=== PATIENT | male | born 1975 | race Caucasian/White ===

== ENCOUNTER 2017-03-15 21:55 | Observation (INO) | payer OTHER ==
--- NOTE | ~2017-03-15 | HEMODYNAMI ---
PATIENT:ALEXANDRIA BARTHOLOMEW MEDICAL RECORD: [id number] : 71 LOCATION:[place] [address] ADMISSION DATE: 03/15/17 Generatedon:03/16/201711:54 Patient name: ALEXANDRIA BARTHOLOMEW Patient #: [id number] SSN: : 1975 Date of study: 03/16/2017 Page: Of Hemodynamic Procedure Report Patient Data Patient Demographics Procedure consent was obtained First Name: ALEXANDRIA Gender: Male Last Name: PUMA : 1975 Patient #: [id number] Age: 41 year(s) Race: Unknown Additional ID: [id number] Contact details Address: [facility] State: [place] City: [place] Zip code: [address] Past Medical History Allergies: No known allergies Admission Admission Data Admission Date: 03/15/2017 Admission Time: 23:52 Room #: [facility] Procedure Procedure Types Cath Procedure Diagnostic Procedure C [facility] w/Coronaries Miscellaneous Procedures Moderate Sedation up to 15 minutes Procedure Description Procedure Date Procedure Date: 03/16/2017 Procedure Start Time: 11:42 Procedure End Time: 11:53 Procedure Staff Name Function Minor Jordan MD Performing Physician Awilda Aj RT Scrub Nabor Chandler RN Nurse Robert Perkins RT Monitor Procedure Data Cath Procedure Fluoroscopy Diagnostic fluoroscopy Total fluoroscopy Time: 1.7 time: 1.7 min min Diagnostic fluoroscopy Total fluoroscopy dose: 395 dose: 395 mGy mGy Contrast Material Contrast Material Type Amount (ml) Isovue 300 44 Entry Location Entry Primary Successful Side Size Upsize Upsize Entry Closure Jimenez ccessful Closure Location (Fr) 1 (Fr) 2 (Fr) Remarks Device Remarks Radial Right 6 Fr Mechanical artery Short Compression Estimated blood loss: 5 ml Diagnostic catheters Device Type Used For End Catheter Placement Diagnostic Terumo 5Fr Procedure Bailey 110cm catheter Procedure Complications No complications Procedure Medications Medication Administration Route Dosage 0.9% NaCl I.V. 100 ml/hr Oxygen NC 2 l/min Heparin Flush Bag added to field 2 bags (1000units/500ml NS) Lidocaine 2% added to field 20 Versed I.V. 1 mg Fentanyl I.V. 50 mcg Fentanyl I.V. 50 mcg Versed I.V. 1 mg Hemodynamics Rest Heart Rate: 63 (bpm) Snapshots Pre Cath Intra NCS Post Cath Vital Signs Time Heart Resp SPO2 etCO2 NIBP (mmHg) Rhythm Pain Sedation Rate (ipm) (%) (mmHg) Status Level (bpm) 11:34:12 67 22 100 0 161/93(135) NSR 0 (11) 10(A) , No pain 11:39:05 71 27 97 0 147/95(118) NSR 0 (11) 10(A) , No pain 11:43:56 83 25 94 0 147/85(113) NSR 0 (11) 10(A) , No pain 11:48:44 79 27 95 0 159/98(127) NSR 0 (11) 9(A) , No pain 11:53:37 86 26 94 0 150/96(123) NSR 0 (11) 9(A) , No pain Medications Time Medication Route Dose Verified Delivered Reason Notes Effe ctiveness by by 11:34:03 0.9% NaCl I.V. 100 Nabor Nabor Per ml/hr Lororal Lororal physician RN RN 11:34:17 Oxygen NC 2 Nabor Nabor Per l/min Lororal Lorigan physician RN RN 11:34:40 Heparin Flush added 2 Nabor Nabor used for Bag to bags Lorigan Lorigan procedure (1000units/500ml field RN RN NS) 11:34:54 Lidocaine 2% added 20ml Nabor Nabor for local to vial Lorigan Lorigan anesthetic field RN RN 11:41:12 Fentanyl I.V. 50 Nabor Nabor for mcg Lorigan Lorigan sedation RN RN 11:42:55 Versed I.V. 1 mg Nabor Nabor for Lorigan Lorigan sedation RN RN 11:47:38 Fentanyl I.V. 50 Nabor Nabor for mcg Lorigan Lorigan sedation RN RN 11:47:46 Versed I.V. 1 mg Nabor Nabor for Lorigan Lorigan sedation RN geriatric psychiatrist Log Time Note 10:57:59 Awilda Counts RT(R) sent for patient. Start room use. 10:57:59 Time tracking: Regular hours 10:58:03 Plan of Care:Hemodynamics will remain stable., Cardiac rhythm will remain stable., Comfort level will be maintained., Respiratory function will remain adequate., Patient/ family verbilizes understanding of procedure., Procedure tolerated without complication., Recovers from procedure without complications.. 11:14:14 Patient received from Med II to CCL 1 Alert and oriented. Tansferred to table in Supine position. 11:14:16 Warm blankets applied, and simran hugger turned on for patient comfort. 11:14:16 Correct patient and procedure confirmed by team. 11:14:18 Signed procedure consent form obtained from patient. 11:14:19 ECG and BP/O2 sat monitors applied to patient. 11:33:06 Vital chart was started 11:34:03 0.9% NaCl 100 ml/hr I.V. was administered by Nabor Chandler RN; Per physician; 11:34:17 Oxygen 2 l/min NC was administered by Nabor Chandler RN; Per physician; 11:34:40 Heparin Flush Bag (1000units/500ml NS) 2 bags added to field was administered by Nabor Chandler RN; used for procedure; 11:34:54 Lidocaine 2% 20ml vial added to field was administered by Nabor Chandler RN; for local anesthetic; 11:37:34 H&P Date Dictated: 03/16/2017 Within 30 days and on chart.. 11:37:36 Baseline sample Acquired. 11:37:39 Rhythm: sinus rhythm 11:37:41 Full Disclosure recording started 11:37:43 Pre-procedure instructions explained to patient. 11:37:43 Pre-op teaching completed and patient verbalized understanding. 11:37:52 Family in patients room. 11:37:53 Patient NPO since Midnight. 11:38:07 Patient allergic to No known allergies 11:38:09 Is the patient allergic to Iodine/contrast media? No. 11:38:10 Is patient on blood thinner?Yes 11:38:13 ACC The patient was administered the following blood thiners within the last 24 hours: ACCPlavix 11:38:15 Patient diabetic? Yes. 11:38:16 If diabetic: On Metformin? Yes 11:38:18 If on Metformin: Last Dose? 03/15/2017 11:38:20 Previous problem with sedation/anesthesia? No ? 11:38:21 Snore? Yes 11:38:22 Sleep apnea? Yes 11:38:23 Deviated septum? No 11:38:24 Opens mouth fully? Yes 11:38:25 Sticks out tongue? Yes 11:38:27 Airway obstruction? No ? 11:38:29 Dentures? No ? 11:38:31 Modified Brody's test Ulnar < 7 seconds 11:38:33 Patient pain scale 0/10 ?. 11:38:38 IV patent on arrival in right forearm with 0.9% NaCl at KVO. 11:38:43 IV right forearm D/C'd due to infiltration. 11:38:51 IV started by Nabor Chandler RN inleft forearm with a 20 gauge IV catheter with 0.9% NaCl at KVO. 11:38:58 Lab results completed and on chart. 11:39:00 Right Radial & Right Groin area was prepped with chlora-prep and draped in sterile fashion 11:39:01 Alarms reviewed by R. N. 11:39:01 Sharps counted by scrub and verified by R.N. 11:39:04 Use device set Radial Dx 11:39:05 MBrace Wrist Support opened to sterile field. 11:39:06 Acist Manifold opened to sterile field. 11:39:06 Acist Hand Control opened to sterile field. 11:39:07 Acist Syringe opened to sterile field. 11:39:07 Medline Cath Pack opened to sterile field. 11:39:08 Bag Decanter opened to sterile field. 11:39:08 Terumo 6Fr Slender Glidesheath opened to sterile field. 11:39:09 St Haseeb 260cm J .035 wire opened to sterile field. 11:39:09 Tegaderm 4 x 4 opened to sterile field. 11:39:13 Physician arrived 11:39:14 --------ALL STOP TIME OUT------ 11:39:14 Final Timeout: patient, procedure, and site verified with staff and physician. All members of the team are in agreement. 11:39:15 Right Radial & Right Groin site verified by team. 11:39:18 Physical assessment completed. ASA score P 2 - A patient with mild systemic disease as per Minor Jordan MD. 11:39:21 Sedation plan: IV Moderate Sedation Versed, Fentanyl 11:41:12 Fentanyl 50 mcg I.V. was administered by Nabor Chandler RN; for sedation; 11:42:15 Procedure started. 11:42:20 Local anesthetic to right radial artery with Lidocaine 2% by Minor Jordan MD.INITIAL ACCESS ONLY 11:42:28 A 6 Fr Short sheath was inserted into the Right Radial artery 11:42:32 Zero performed for pressure channel P1 11:42:55 Versed 1 mg I.V. was administered by Nabor Chandler RN; for sedation; 11:45:48 A Diagnostic [employer]o 5Fr Bailey 110cm catheter was advanced over the wire and used for Procedure. 11:45:57 LV gram done using SAVAGE 11:46:00 Injector settings: Ml/sec: 5, Volume: 15, 11:46:04 EF : 60 % 11:46:06 RCA angiography performed. 11:46:08 Catheter removed. 11:46:34 WeHaus Launcher 6Fr EBU 3.5 guide catheter opened to sterile field. 11:46:43 6 Fr ebu 3.5 guide catheter was inserted over the wire 11:46:46 LCA angiography performed. 11:47:18 Catheter removed. 11:47:24 Terumo TR Band Large opened to sterile field. 11:47:36 Sheath removed intact; hemostasis achieved with Mechanical Compression to the Right Radial artery. 11:47:38 Fentanyl 50 mcg I.V. was administered by Nabor Chandler RN; for sedation; 11:47:46 Versed 1 mg I.V. was administered by Nabor Chandler RN; for sedation; 11:48:17 Procedure ended.(Physican Out) 11:49:30 20g IV Catheter opened to sterile field. 11:51:32 Fluoroscopy time 01.70 minutes. 11:51:36 Fluoroscopy dose: 395 mGy 11:51:36 Flurop Dose total: 395 11:52:03 Contrast amount:Isovue 300 44ml. 11:52:04 Sharps counted by scrub and verified by R.N. 11:52:06 TR band inflated with 10cc of air. 11:52:07 Insertion/operative site no bleeding no hematoma. 11:52:12 Post right radial artery:stable, soft, clean and dry 11:52:15 Post Procedure Pulses reassessed and unchanged 11:52:18 Post procedure rhythm: unchanged. 11:52:21 Post-procedure physical assessment completed. ASA score P 2 - A patient with mild systemic disease as per Minor Jordan MD. 11:52:23 Post procedure rhythm: sinus rhythm 11:52:25 Estimated blood loss: 5 ml 11:52:26 Post procedure instruction explained to patient.Patient verbalizes understanding. 11:52:27 Patient needs reinforcement of post procedure teaching. 11:52:33 Procedure type changed to Cath procedure, Diagnostic procedure, LHC, LHC w/Coronaries, Miscellaneous Procedures, Moderate Sedation up to 15 minutes 11:53:25 Procedure and supply charges have been captured, reviewed, submitted and are correct. 11:53:28 Procedure Complication : No complications 11:53:33 Vital chart was stopped 11:53:33 See physician's report for complete and final results. 11:53:36 Report given to PCU. 11:53:38 Patient transfered to PCU with Stretcher. 11:53:40 Procedure ended. 11:53:40 Full Disclosure recording stopped 11:53:47 End room use (Document Last) Device Usage Item Name Manufacture Quantity Catalog Hospital Part Current Minimal Lot# / Number Charge Number Stock Stock Serial# Code [facility] 1 [id number] [id number] 5 Wrist Vascular Support Dynamics Acist Acist 1 86526 [id number] 742580 736079 5 Manifold Medical Systems Inc Acist Hand Acist 1 98910 924639 147629 016984 5 Control Medical Systems Inc Acist Acist 1 23895 772954 261215 363374 20 Syringe Medical Systems Inc Medline Cardinal 1 [id number] [id number] 20720 583396 5 Cath Pack Health Bag Microtek 1 2001S 663627 93409 615628 5 DecOptuLink Inc. Terumo 6Fr Terumo 1 [id number] 718411 388340 559013 [address] St Haseeb 1 810196 821821 952870 096699 30 260cm J .035 wire Tegaderm 4 3M 1 1626W 999900 542197 761894 5 x 4 Diagnostic Terumo 1 94-4463 001511 350581 149767 5 Terumo 5Fr Bailey 110cm catheter Medtronic Medtronic 1 [id number] 274974 60654 058464 3 Launcher 6Fr EBU 3.5 guide catheter Terumo TR Terumo 1 [id number] 107894 121524 754767 40 Band Large 20g IV B. Wilson 1 [id number] 827932 780933 651288 5 Catheter Signature Audit [place] Stage Time Signature Unsigned Intra-Procedure 03/16/2017 Robert Perkins 11:54:19 AM RT(R) Signatures Monitor : Robert Perkins RT Signature : Date : Time : [place] [id number] [facility] [place] [address]
[2017-03-15 22:37] LABS: BASOPHILS 0.5 % (0-2); EOSINOPHILS 1.5 % (0-7); HEMATOCRIT 45.1 % (42.0-54.0); HEMOGLOBIN 16.5 g/dL (13.5-17.5); IMMATURE GRANULOCYTES 0.4 % (0-5); LYMPHOCYTES 23.7 % (15-50); MCH 35.4 pg (26.0-34.0); MCHC 36.6 g/dL (31.0-37.0); MCV 96.8 fL (80.0-100.0); MEAN PLATELET VOLUME 10.8 fL (7.4-10.4); MONOCYTES 3.3 % (2-11); NEUTROPHILS 70.6 % (40-80); PLATELET COUNT 174 10x3/uL (130-400); RBC 4.66 10x6/uL (4.20-6.10); RDW 12.5 % (11.5-14.5)
[2017-03-15 22:52] LABS: ALBUMIN 3.5 g/dL (3.4-5.0); ALKALINE PHOSPHATASE 102 U/L (46-116); ALT (SGPT) 83 U/L (10-68); BILIRUBIN - TOTAL 0.37 mg/dL (0.2-1.3); CALC OSMOLALITY 269 mosm/kg (275-300); CALCIUM 8.9 mg/dL (8.5-10.1); CARBON DIOXIDE 23.7 mmol/L (21.0-32.0); CHLORIDE - SERUM 100 mmol/L (98-107); CREATININE - SERUM 1.1 mg/dL (0.6-1.3); GLUCOSE 168 mg/dL (74-106); POTASSIUM - SERUM 3.4 mmol/L (3.5-5.1); PROTEIN - SERUM 7.7 g/dL (6.4-8.2); SODIUM 134 mmol/L (136-145); UREA NITROGEN 7 mg/dL (7-18); eGFR NON AFRICAN AMERICAN 78 mL/min (90-120)
[2017-03-15 23:01] LABS: CHOL - HDL RATIO 4.4 ratio (2.3-4.9); CHOLESTEROL, TOTAL 166 mg/dL (0-200); CKMB 0.7 U/L (0.0-3.6); CREATINE KINASE 197 UL (21-232); HDL CHOLESTEROL 38 mg/dL (32-96); TRIGLYCERIDE 433 mg/dL (30-200)
[2017-03-15 23:03] LABS: TROPONIN-I < 0.017 ng/mL (0.000-0.060)
[2017-03-16 00:48] LABS: UDS - AMPHET NEGATIVE QUAL (NEGATIVE); UDS - BARB NEGATIVE QUAL (NEGATIVE); UDS - BENZO NEGATIVE QUAL (NEGATIVE); UDS - COCAINE NEGATIVE QUAL (NEGATIVE); UDS - OPIATE NEGATIVE QUAL (NEGATIVE); UDS - PCP NEGATIVE QUAL (NEGATIVE); UDS - THC POSITIVE QUAL (NEGATIVE)
[2017-03-16] MEDS ORDERED: GLUCOPHAGE500 MG PO (01:30)
--- NOTE | 2017-03-16 01:33 | NUR ---
PT ARRIVED TO ROOM. PT AMBULATED TO BED FROM WHEELCHAIR WITH A STEADY GAIT. PT HAS FAMILY MEMBER AT BEDSIDE. PT IS AAO. O2 2L NC. IV S/L ON RIGHT FOREARM.PT BED IS LOW. CALL LIGHT IN REACH. WILL CPOC
[2017-03-16] MEDS ORDERED: NICORELIEF4 MG PO (01:50)
[2017-03-16] MEDS ORDERED: GLIPIZIDE10 MG PO (01:51)
[2017-03-16] MEDS ORDERED: VITAMIN D31000 UNIT PO (01:51)
[2017-03-16] MEDS ORDERED: ZOLOFT100 MG PO (01:52)
[2017-03-16] MEDS ORDERED: XALATAN 0.0052.5 ML EACH EYE (01:53)
[2017-03-16] MEDS ORDERED: OMEGA 3 FISH OI1 CAP PO (01:54)
[2017-03-16] MEDS ORDERED: MELATONIN 3 MG1 TAB PO (01:55)
[2017-03-16 02:43] VITALS: BP 166/94; BMI 31.4
[2017-03-16 04:00] VITALS: BP 166/94
--- NOTE | 2017-03-16 06:38 | NUR ---
PT ASLEEP. RESPIRATIONS EVEN AND UNLABORED. LAYING IN BED NEXT TO HIM. PT RESPONDS TO VERBAL STIMULI. PT DENIES ANY NEEDS AT THIS TIME. NO S/S OF DISTRESS WILL CPOC
[2017-03-16 07:16] VITALS: BP 142/93
[2017-03-16 09:10] VITALS: BMI 31.3
--- NOTE | 2017-03-16 11:13 | NUR ---
PRE-OPS GIVEN. TO SMUTTER BY BED.
--- NOTE | 2017-03-16 12:12 | NUR ---
BACK FROM POOL CLEANER. VS WNL. RIGHT WRIST STABLE WITH TR BAND INTACT. WILL MONITOR.
--- NOTE | 2017-03-16 14:46 | NUR ---
TR BAND DCD WITHOUT BLEEDING OR HEMATOMA NOTED.
--- NOTE | 2017-03-16 15:01 | NUR ---
IV AND TELEMETRYDCD. DC PLANS GIVEN. UNDERSTANDING VOICED. ESCORTED TO CAR BY W/C.
--- NOTE | 2017-03-19 16:42 | DS ---
PATIENT:ALEXANDRIA KENNEDY :71 MEDICAL RECORD: [id number] DISCHARGE SUMMARY ADMISSION DATE: 03/15/17 DISCHARGE DATE: 03/16/17 DIAGNOSES: 1. Chest pain. 2. Normal cardiac catheterization. Mr. Kennedy presents with chest pain. Multiple risk factors for coronary disease; however, cardiac catheterization is normal. Discharged home with no change in his medications. No cardiac followup is necessary. TRANSINT:[id number] Voice Confirmation ID: [id number] DOCUMENT ID: [id number] MANAS JO MD at 1642 CC: [id number] DICTATION DATE: 03/16/17 1149 CLEARING INSPECTOR: 03/16/17 1326 DIS IN 03/16/17 [place] [id number] [place] [address]
--- NOTE | 2017-03-19 16:42 | HP ---
PATIENT: ALEXANDRIA BARTHOLOMEW MEDICAL RECORD: [id number] ACCOUNT: [id number] LOCATION:[address] : 71 ADMISSION DATE: 03/15/17 HISTORY AND PHYSICAL EXAMINATION DIAGNOSES: 1. Angina. 2. Family history of coronary artery disease. 3. Noninsulin-dependent diabetes. 4. Smoking history. 5. Hyperlipidemia. HISTORY OF PRESENT ILLNESS: This is a gentleman with no previous cardiac history, who has a history of multiple risk factors as outlined above, who began having chest pain, chest discomfort, very classic anginal pain radiating down the left arm associated with shortness of breath and diaphoresis. He had quite severe episode yesterday, presented to the Emergency Room. His troponin is normal. He had another episode of chest discomfort this morning. PHYSICAL EXAMINATION: GENERAL APPEARANCE: Well-nourished, well-developed, appears stated age. Level of distress, comfortable. PSYCHIATRIC: Mental status, alert, normal affect. Orientation, oriented to time, place and person. EYES: Lids and conjunctiva, noninjected. No discharge, no pallor. ENT: Lips, teeth, gums, normal dentition. Oropharynx, no cyanosis, no pallor. NECK: Carotid arteries, bilateral normal upstroke, no bruits, no thrills. JUGULAR VEINS: No jugular venous pressure or distention. CERVICAL LYMPH NODES: Nontender, nonenlarged. THYROID: Not enlarged. Nontender. No nodules. LUNGS: Respiratory effort, unlabored. CHEST: Normal curvature. No thoracic deformity. No chest wall tenderness. Percussion, resonant. Auscultation, clear. No wheezes, no rales, no rhonchi. CARDIOVASCULAR: Precordial exam, nondisplaced. No heaves or pericardial thrills. Rate and rhythm, regular. Heart sounds, normal S1, normal S2. No S3, no gallop, no rub. Systolic murmur, not heard. Diastolic murmur, not heard. EXTREMITIES: No cyanosis, no edema. Peripheral pulses, full and equal in all extremities, except as noted. No bruits appreciated. ABDOMEN: Soft, nondistended. Normal aorta. No bruit. Nontender. No masses. Liver, nontender, no hepatomegaly. Spleen, nontender, no splenomegaly. MUSCULOSKELETAL: No joint tenderness. No joint swelling. No erythema. NEUROLOGICAL: Normal gait, normal strength, normal tone. SKIN: Warm and dry. REVIEW OF SYSTEMS: The patient reports easy bruising but reports no swollen glands. The patient reports no fever, no night sweats, no significant weight gain, no significant weight loss. No significant exercise tolerance. The patient reports no dry eyes, no irritation, no vision change. Patient reports no difficulty hearing and no ear pain. Patient reports no frequent nose bleeds or nose and sinus problems. Patient reports on arm pain on exertion. No shortness of breath while lying down. No history of heart murmur. Patient reports no cough, no wheezing or coughing up blood. Patient reports no abdominal pain, no vomiting. Normal appetite. No diarrhea and not vomiting blood. No nausea and no constipation. Patient reports no incontinence. No difficulty urinating. No hematuria. No increased frequency. Patient reports HISTORY AND PHYSICAL [id number] ALEXANDRIA BARTHOLOMEW no muscle aches. No weakness, no arthralgias, no back pain. No swelling of the extremities. Patient reports no abnormal mole, no jaundice, no rashes. Reports no loss of consciousness. No weakness and no numbness. No seizures, dizziness, or headaches. The patient reports no depression, no sleep disturbance, feeling safe in a relationship and no alcohol abuse. Patient reports on fatigue. Reports no runny nose or sinus pressure. No itching, no hives, and no frequent sneezing. OVERALL IMPRESSION: Unstable anginal symptomatology in a patient with multiple risk factors, we will proceed with coronary angiography. Further care depends upon findings of the angiography. TRANSINT:[id number] Voice Confirmation ID: [id number] DOCUMENT ID: [id number] MANAS JO MD at 1642 CC: [id number] DICTATION DATE: 03/16/1737 TECHNICAL BUSINESS ANALYST: 03/16/17 0950 DIS IN 03/16/17 [facility] [address] [place] [address]
--- NOTE | 2017-03-19 16:42 | OP ---
PATIENT NAME: ALEXANDRIA BARTHOLOMEW MEDICAL RECORD: [id number] :71 LOCATION:[address] ADMISSION DATE:03/15/17 SURGEON: MANAS JO MD DATE OF OPERATION: 03/16/2017 PROCEDURES: 1. Left heart catheterization. 2. Selective coronary angiography. 3. Left ventriculogram. INDICATION: Chest pain. PROCEDURE IN DETAIL: After informed consent was obtained and after detailed explanation of risks and benefits as well as alternative therapies, the patient elected to proceed with angiogram and heart catheterization. The right radial area was prepped and draped in normal sterile fashion. The right radial artery was cannulated via modified Seldinger technique with placement of 5-Singaporean sheath. All catheters were exchanged through this sheath. FINDINGS: The left ventriculogram was performed in standard 30-degree SAVAGE view, reveals good cardiac wall motion throughout all segments. The overall ejection fraction is estimated at 60%. SELECTIVE CORONARY ANGIOGRAPHY: Left main, left anterior descending, left circumflex, and right coronary are all smooth-walled vessels with no angiographic evidence of coronary artery disease. OVERALL IMPRESSION: 1. No angiographic evidence of coronary artery disease. 2. Normal left heart pressures. 3. Normal left ventricular systolic function. Chest pain is noncardiac in etiology. No other cardiac workup needs to be ascertained. TRANSINT:[id number] Voice Confirmation ID: [id number] DOCUMENT ID: [id number] MANAS JO MD at 1642 CC: [id number] DICTATION DATE: 03/16/17 1151 FINANCIAL SERVICES COUNSELOR: 03/16/17 1325 DIS IN 03/16/17 [place] [id number] [place] [address]
== END 2017-03-16 15:02 | disposition home or self-care (01) ==
LOC: OBSVTIME → D.ER 21:55 → D.M2 23:52 → OBSVTIME 23:52 → D.M2 03-16 00:11 → OBSVTIME 03-16 00:11 → D.ER 03-16 00:11 → D.M2 03-16 00:11
PROVIDERS: Family Medicine; Physician Assistant; ADMIT Internal Medicine Interventional Cardiology
DX: R07.89 Other chest pain (principal); E11.9 Type 2 diabetes mellitus without complications; E78.5 Hyperlipidemia, unspecified; Z87.891 Personal history of nicotine dependence